=== PATIENT | male | born 1965 | race Hispanic/Latino ===

== ENCOUNTER → 2018-08-24 | Outpatient (CLI) | payer BC | END | disposition home or self-care (01) | LOC: SHCH 10:55 | PROVIDERS: ATTEND Internal Medicine Cardiovascular Disease | DX: I51.7 Cardiomegaly (principal); I48.0 Paroxysmal atrial fibrillation | CPT/HCPCS: 93306 ==

== ENCOUNTER 2018-12-28 06:46 | Day surgery (SDC) | payer BC ==
[2018-12-26 11:42] VITALS: BP 136/93
[2018-12-26 11:54] LABS: EOSINOPHILS % (AUTO) 1.2 % (0.0-8.0); HEMATOCRIT 43.7 % (42-54); LYMPHOCYTES % (AUTO) 21.3 % (21.0-51.0); MEAN CORPUSCULAR HEMOGLOBIN 30.4 pg (27.0-33.0); MEAN CORPUSCULAR HGB CONC 33.4 g/dL (32.0-36.0); MEAN CORPUSCULAR VOLUME 91.1 fL (79-99); MONOCYTES % (AUTO) 9.4 % (3.0-13.0); NEUTROPHILS % (AUTO) 67.1 % (40.0-77.0); NUCLEATED RED BLOOD CELLS 0.1 % (0.0-0.19); PLATELET COUNT (AUTO) 210 K/uL (130-400); RED CELL DISTRIBUTION WIDTH 15.5 % (11.0-15.5); WHITE BLOOD COUNT (AUTO) 5.3 K/uL (4.8-10.8)
[2018-12-26 11:56] LABS: POTASSIUM 4.5 mmol/L (3.5-5.1)
[2018-12-26 12:02] LABS: INR 1.23 (0.85-1.15); PARTIAL THROMBOPLASTIN TIME 40.2 SEC (26.3-35.5); PROTHROMBIN TIME 12.9 SEC (9.6-11.6)
[~2018-12-28] VITALS: Ht 167.6 cm; Wt 97.3 kg
[2018-12-28] VITALS (25 sets, daily range): BP systolic 111–147; BP diastolic 65–94
[~2018-12-28 06:46] MED LIST: AMIO200T5 PO; DILT120T PO; FENTANYL CITRATE PF 50 MCG/1 ML 2ML VIAL IVP SCH; HYDR12.54 PO; LISI10TA7 PO; MIDAZOLAM HCL 1 MG/ML 2ML VIAL IV SCH; RIVA20TA PO; SODIUM CHLORIDE 0.9% 1000ML 1,000 ML IV SCH
[2018-12-28] MEDS ORDERED: ASPI-1026 PO (07:42)
[2018-12-28] MEDS ORDERED: NALOXONE HCL 0.4 MG/1 ML ML ONE (08:11)
[2018-12-28] MEDS ORDERED: FLUMAZENIL 0.1MG/1ML 5ML VIAL IV ONE (08:12)
--- NOTE | 2018-12-28 08:40 | NUR ---
PROCEDURE NOTE TIME OUT DONE AT 0840, DR. ARNOLD, NATIVIDAD DORAN,RN, NEO MCKNIGHT,RT AND MYSELF IN THE ROOM. 1ST DOSE SEDATION GIVEN AT 0843. SEE SEDATION FLOW SHEET AND [facility] FOR V/S. DR. ARNOLD SHOCKED 225 JOULES X1 BIPHASIC AT 0858, FAILED. 2ND SHOCK AT 0900 WITH 300 JOULES X1 BIPHASIC RESULTED TO NORMAL SINUS RHYTHM. PROCEDURE ENDED AT 0902. PT TOLERATED WELL. PT WAS AWAKE, DROWSY, TALKING, ORIENTED. DR. ARNOLD OUT OF ROOM BY [id number].
--- NOTE | 2018-12-28 11:30 | NUR ---
ASSESS BLEEDING NOTED COMING FROM A PUNCTURE UNDER THE TONGUE. PT DENIES PAIN, NOT IN ANY APPARENT DISTRESS. HAD PT GARGLE WITH COOL WATER ALTERNATING WITH ICE CHIPS AND APPLYING COOL WET GAUZE UNDER TONGUE WITH PT APPLYING PRESSURE. AFTER 15 MINS, BLEEDING IS STILL PRESENT, SLOW OOZING, LESS FROM INITIAL.
--- NOTE | 2018-12-28 11:50 | NUR ---
NOTIFY DR. ARNOLD NOTIFIED, STATED TO MONITOR PT, MAY DISCHARGE WHEN BLEEDING STOPS, CALL HIM IF STILL BLEEDING IN 2 HRS. Addendum: 12/28/18 at 1221 by JAYCOB VALDES RN RN HAD PT GARGLE WARM SALT WATER, THEN CONTINUED TO APPLY PRESSURE WITH GAUZE. WILL CONTINUE TO MONITOR. PT NOT IN RESPIRATORY DISTRESS. Addendum: 12/28/18 at 1428 by JAYCOB VALDES RN RN TYPO ERROR: HAD PT GARGLE ROOM TEMPERATURE SALT WATER
--- NOTE | 2018-12-28 12:25 | NUR ---
ASSESS BLEEDING FROM UNDER THE TONGUE HAD COMPLETELY STOPPED. PT DENIES PAIN, NOT IN ANY APPARENT DISTRESS. CHANGED GAUZE.
--- NOTE | 2018-12-28 12:30 | NUR ---
DISCHARGE PT DISCHARGED VIA WHEELCHAIR WITH . PT STABLE. NO COMPLAINTS MADE. NO MORE BLEEDING NOTED FROM PUNCTURE, GAUZE UNDER TONGUE CLEAN, SHOWED TO PT. DISCHARGE INSTRUCTIONS GIVEN TO EARLIER, VERBALIZED UNDERSTANDING. Addendum: 12/28/18 at 1440 by JAYCOB VALDES RN RN ADDENDUM: PT INSTRUCTED NOT TO EAT HARD, SHARP, HOT FOODS. START WITH SOMETHING LIGHT/SOFT, COLD FOODS. MONITOR IF BLEEDING RESUMES, APPLY GAUZE FOR PRESSURE AND GO BACK TO EMERGENCY ROOM. VERBALIZED UNDERSTANDING.
== END 2018-12-28 12:30 | disposition home or self-care (01) ==
LOC: DAH 06:46
PROVIDERS: ATTEND Internal Medicine Cardiovascular Disease
DX: I48.1 Persistent atrial fibrillation (principal); I10 Essential (primary) hypertension; E66.9 Obesity, unspecified; Z79.01 Long term (current) use of anticoagulants; Z68.36 Body mass index [BMI] 36.0-36.9, adult; Z79.899 Other long term (current) drug therapy; Z90.49 Acquired absence of other specified parts of digestive tract; Z72.89 Other problems related to lifestyle; Z83.3 Family history of diabetes mellitus; Z82.49 Family history of ischemic heart disease and other diseases of the circulatory system
CPT/HCPCS: 36415; 80048; 85025; 85610; 85730; 92960; 93005 ×2; A4606; J2250 ×2; J3010 ×2; J7030; 99152; 99153; J2310; J3490

== ENCOUNTER → 2022-09-02 | Outpatient (CLI) | payer BC ==
[~2022-09-02] MED LIST changes: -AMIO200T5 PO; +AMIO200T68 PO; -FENTANYL CITRATE PF 50 MCG/1 ML 2ML VIAL IVP SCH; +LISI10TA24 PO; -LISI10TA7 PO; -MIDAZOLAM HCL 1 MG/ML 2ML VIAL IV SCH; -SODIUM CHLORIDE 0.9% 1000ML 1,000 ML IV SCH
[2022-09-02 16:21] LABS: BASOPHILS % (AUTO) 0.3 % (0.0-5.0); EOSINOPHILS % (AUTO) 1.2 % (0.0-8.0); HEMATOCRIT 46.5 % (42-54); LYMPHOCYTES % (AUTO) 24.1 % (21.0-51.0); MEAN CORPUSCULAR HEMOGLOBIN 30.8 pg (27.0-33.0); MEAN CORPUSCULAR HGB CONC 32.9 g/dL (32.0-36.0); MEAN CORPUSCULAR VOLUME 93.6 fL (79-99); MONOCYTES % (AUTO) 11.2 % (3.0-13.0); NEUTROPHILS % (AUTO) 62.5 % (40.0-77.0); PLATELET COUNT (AUTO) 201 K/uL (130-400); RED BLOOD CELL COUNT(AUTO) 4.97 MIL/uL (4.50-6.20); RED CELL DISTRIBUTION WIDTH 13.1 % (11.0-15.5); WHITE BLOOD COUNT (AUTO) 5.7 K/uL (4.8-10.8)
[2022-09-02 16:34] LABS: ALBUMIN 3.9 g/dL (3.5-5.0); CREATININE 1.1 mg/dL (0.5-1.5); POTASSIUM 4.2 mmol/L (3.5-5.1); TOTAL PROTEIN, SERUM 7.8 g/dL (6.0-8.3)
== END | disposition home or self-care (01) ==
LOC: LAB 11:55
PROVIDERS: ATTEND Internal Medicine Cardiovascular Disease
DX: I48.20 Chronic atrial fibrillation, unspecified (principal)
CPT/HCPCS: 36415; 80053; 80061; 85025